=== PATIENT | male | born 1945 | race Caucasian/White ===

== ENCOUNTER 2025-02-06 09:05 | Emergency (ER) | payer MEDICARE, BC ==
[2025-02-06 09:58] VITALS: BP 135/78; PULSE 76
== END 2025-02-06 09:55 | disposition home or self-care (01) ==
LOC: FB.ED 09:05
DX: L24.5 Irritant contact dermatitis due to other chemical products (principal); I10 Essential (primary) hypertension; Z79.899 Other long term (current) drug therapy
CPT/HCPCS: 99282